=== PATIENT | female | born 1960 | race Caucasian/White ===

== ENCOUNTER 2019-03-30 07:52 | Day surgery (SDC) | payer BC ==
[~2019-03-30 07:52] MED LIST: PROPOFOL INJ 200 MG/20 ML VIAL IV ONE
--- NOTE | 2019-03-30 10:11 | Operative Report ---
Operative Report DATE OF SURGERY: 03/30/19 Operative Report: The risks, benefits and alternatives of the procedure Including the risk of bleeding, perforation requiring surgery I explained to the patient in detail and informed consent is obtained. Patient is taken back to the endoscopy suite and placed in a left, lateral decubital position. Timeout was called. Propofol medication is administered. Rectal examination is done which did not reveal any masses, tears or fissures. An Olympus videoscope was introduced into the patient's rectum. Scope was then carefully advanced all the way to the cecum. Cecum was identified by the usual anatomical landmarks including the ileocecal valve as well as the appendiceal office. Photodocumentation is obtained. Scope was then sequentially pulled back via the rest segments of the colon including the ascending colon, hepatic flexure, transverse colon, splenic flexure, descending colon and finally into the rectosigmoid portions of the colon. Retroflexion maneuvers performed. PREOPERATIVE DIAGNOSIS: Colorectal cancer screening POSTOPERATIVE DIAGNOSIS: Sigmoid polyp status post snare polypectomy and retrieved. Rectal polyp status post biopsy and retrieved OPERATION: Colonoscopy with snare polypectomy. Colonoscopy with biopsy SURGEON: BENNETT HAMILTON ANESTHESIA: LMAC TISSUE REMOVED OR ALTERED: As noted above. COMPLICATIONS: None. ESTIMATED BLOOD LOSS: None. INTRAOPERATIVE FINDINGS: As noted above. PROCEDURE: Patient tolerated the procedure well. No immediate postprocedure comp occasions are noted. Patient is discharged in good condition. Discharge date 03/30/2019. Discharge diet: Regular. Discharge activity: Regular. 2 to 3-week follow-up to discuss findings. Patient is instructed to call the office or proceed to the emergency room should he be any further questions. 3 to 5-year surveillance colonoscopy.
[2019-03-30 10:44] VITALS: BP 126/64
== END 2019-03-30 10:44 | disposition home or self-care (01) ==
LOC: END 07:52
PROVIDERS: ATTEND Internal Medicine Gastroenterology
DX: Z12.11 Encounter for screening for malignant neoplasm of colon (principal); D12.7 Benign neoplasm of rectosigmoid junction; I10 Essential (primary) hypertension; E78.5 Hyperlipidemia, unspecified; F17.210 Nicotine dependence, cigarettes, uncomplicated; Z79.899 Other long term (current) drug therapy
CPT/HCPCS: 45380; 45385; 88305 ×2; 00811; J2704; 811